=== PATIENT | female | born 2000 | race Caucasian/White ===

== ENCOUNTER 2021-10-17 12:02 | Observation (INO) | payer MEDICAID ==
[~2021-10-17] VITALS: Ht 157.5 cm; Wt 72.6 kg
[2021-10-17 14:39] LABS: CLARITY URINE CLEAR (CLEAR); COLOR URINE YELLOW (YELLOW); KETONES URINE NEGATIVE (NEGATIVE); LEUKOCYTE ESTERASE URINE 1+ (NEGATIVE); NITRITE URINE NEGATIVE (NEGATIVE); OCCULT BLOOD URINE NEGATIVE (NEGATIVE); PROTEIN URINE NEGATIVE (NEGATIVE); SPECIFIC GRAVITY URINE 1.019 (1.005-1.030)
[2021-10-17] MEDS ORDERED: PNV1TABL76 MT (15:24)
== END 2021-10-17 15:45 | disposition home or self-care (01) ==
LOC: 8 EST LDRP 12:02 → OBSVTOIN 12:03 → INTOOBSV 12:03 → UNDODISOB 13:18
PROVIDERS: ADMIT Obstetrics & Gynecology; ATTEND Obstetrics & Gynecology
DX: O26.893 Other specified pregnancy related conditions, third trimester (principal); R10.30 Lower abdominal pain, unspecified; Z3A.35 35 weeks gestation of pregnancy
CPT/HCPCS: 59025; 76805; 76818; 81003; G0378; 99281

== ENCOUNTER 2021-10-26 19:14 | Observation (INO) | payer MEDICAID ==
[~2021-10-26] VITALS: Ht 157.5 cm; Wt 72.6 kg
[~2021-10-26 19:14] MED LIST: PNV1TABL76 MT
== END 2021-10-26 21:35 | disposition home or self-care (01) ==
LOC: 8 EST LDRP 19:14
PROVIDERS: ADMIT Obstetrics & Gynecology; ATTEND Obstetrics & Gynecology
DX: O62.9 Abnormality of forces of labor, unspecified (principal); O26.893 Other specified pregnancy related conditions, third trimester; R10.9 Unspecified abdominal pain; Z3A.37 37 weeks gestation of pregnancy
CPT/HCPCS: 59025; 76805; 76818; G0378; 99281